=== PATIENT | female | born 1955 | race Caucasian/White ===

== ENCOUNTER → 2017-11-29 | Outpatient (CLI) | payer OTHER ==
[~2017-11-29] MED LIST: AVISTA PO; BENICAR HCT 401 EACH PO; CARAFATE 11 GM/10 M1 PO; PEPCID AC20 M1 PO; TRAMADOL 50 MG50 MG PO; ZOLOFT25 MG PO
== END ==
LOC: M.RAD 12:57
DX: M19.042 Primary osteoarthritis, left hand (principal); M19.071 Primary osteoarthritis, right ankle and foot; M79.672 Pain in left foot

== ENCOUNTER → 2018-06-14 | Outpatient (CLI) | payer OTHER | LOC: M.RAD 09:01 | DX: Z12.31 Encounter for screening mammogram for malignant neoplasm of breast (principal); G43.909 Migraine, unspecified, not intractable, without status migrainosus ==

== ENCOUNTER → 2019-03-20 | Outpatient (CLI) | payer OTHER | LOC: M.RAD 11:53 | DX: J98.4 Other disorders of lung (principal) ==

== ENCOUNTER → 2019-05-23 | Outpatient (CLI) | payer OTHER | LOC: M.MRI 10:57 | DX: M75.102 Unspecified rotator cuff tear or rupture of left shoulder, not specified as traumatic (principal); M19.012 Primary osteoarthritis, left shoulder; Z88.8 Allergy status to other drugs, medicaments and biological substances ==

== ENCOUNTER → 2019-06-18 | Outpatient (CLI) | payer OTHER | LOC: M.RAD 07:00 | DX: Z12.31 Encounter for screening mammogram for malignant neoplasm of breast (principal) ==

== ENCOUNTER → 2019-06-21 | Outpatient (CLI) | payer OTHER | LOC: M.LAB 04:35 | DX: E87.6 Hypokalemia (principal) ==

== ENCOUNTER → 2020-07-27 | Outpatient (CLI) | payer BC, MEDICARE | LOC: M.RAD 07-24 10:20 | PROVIDERS: ATTEND Registered Nurse Diabetes Educator | DX: Z12.31 Encounter for screening mammogram for malignant neoplasm of breast (principal) ==

== ENCOUNTER → 2021-02-05 | Outpatient (CLI) | payer BC | LOC: M.RAD 09:42 | PROVIDERS: ATTEND Registered Nurse Diabetes Educator | DX: R05 Cough (principal); Z87.891 Personal history of nicotine dependence ==

== ENCOUNTER → 2021-08-09 | Outpatient (CLI) | payer BC | LOC: M.RAD 09:03 | PROVIDERS: ATTEND Registered Nurse Diabetes Educator | DX: Z12.31 Encounter for screening mammogram for malignant neoplasm of breast (principal); N64.89 Other specified disorders of breast ==